=== PATIENT | male | born 1970 | race Caucasian/White ===

== ENCOUNTER 2017-09-29 11:13 | Observation (INO) | payer BC ==
[~2017-09-29] VITALS: Ht 185.4 cm; Wt 165.2 kg
--- NOTE | 2017-09-29 11:15 | NUR ---
PATIENT TO ROOM 10 VIA WHEELCHAIR. MD NOTIFIED OF PT STATUS.
--- NOTE | 2017-09-29 11:30 | NUR ---
IV INITATED, LABS COLLECTED. PATIENT MEDICATED WITH 10 UNITS OF REGULAR INSULIN AND BOLUS OF IV FLUIDS INITIATED. PATIENT AWARE OF PLAN OF CARE AND WAIT TIME. WILL CONITNUE TO MONITOR.
[2017-09-29 12:04] LABS: ALBUMIN 4.6 g/dL (3.2-5.0); ALKALINE PHOSPHATASE 112 u/l (38-126); ANION GAP 22 (6-22 (CALC)); BILIRUBIN, TOTAL 0.9 mg/dL (0.0-1.4); BUN 19 mg/dL (9-20); BUN/CREATININE RATIO 24 (12-20 (CALC)); CALCIUM 9.5 mg/dL (8.4-10.2); CARBON DIOXIDE 21 mmol/l (22-30); CHLORIDE 92 mmol/l (95-108); CREATININE 0.8 mg/dL (0.7-1.3); GFR > 60 ML/MIN (>=60 (CALC)); GFR FOR AFR.AMER. > 60 ML/MIN (>=60 (CALC)); POTASSIUM 4.4 mmol/l (3.5-5.1); SGOT/AST 36 u/l (17-59); SGPT/ALT 50 u/l (21-72); SODIUM 130 mmol/l (137-146); TOTAL PROTEIN 7.7 g/dL (6.3-8.2)
[2017-09-29 12:13] LABS: GLUCOSE 667 mg/dL (75-110)
[2017-09-29 12:16] LABS: HEMATOCRIT 42.7 % (39.0-50.0); HEMOGLOBIN 15.6 g/dl (14.0-18.0); IMMATURE GRANULOCYTES 0.6 % (0.0-1.0); MEAN CELL VOLUME 82.8 fL CALC (80.0-100.0); MEAN CORPUSCULAR HGB 30.2 pG CALC (26.0-32.0); MEAN CORPUSCULAR HGB CONC 36.5 g/L CALC (32.0-36.0); NEUT# 5.2 thou/uL (1.82-7.42); RED BLOOD COUNT 5.16 mill/uL (4.70-6.10); RED CELL DISTRI WIDTH 12.2 % (11.5-15.5)
[2017-09-29 12:18] LABS: MYOGLOBIN 157 ng/mL (0 - 121)
--- NOTE | 2017-09-29 12:30 | NUR ---
ACCUCHECK 497. PATIENT RESTING COMFORTABLY IN STRETCHER WITH HOB ELEVATED. PATIENT DENIES ANY NEEDS AT THIS TIME. DENIES ANY SOB, VSS. PATIENT AWARE OF PLAN FOR ADMISSION, WILL CONTINUE TO MONITOR.
--- NOTE | 2017-09-29 12:36 | NUR ---
SBAR PRINTED TO FLOOR
--- NOTE | 2017-09-29 13:05 | NUR ---
UNABLE TO GIVE REPORT, JOSE WILL CLL BACK.
--- NOTE | 2017-09-29 13:16 | NUR ---
REPORT CALLED TO MED SURG JOSE
--- NOTE | 2017-09-29 13:45 | NUR ---
PT TO MEDS[facility] VIA WC ACCOMPANIED BY STAFF.
--- NOTE | 2017-09-29 13:50 | NUR ---
Admission Note Report Given to: SBAR PRINTED TO FLOOR Transported by: X Wheelchair Stretcher Transported with: X Nurse Transporter X Patent IV O2 X Lobster Fisherman
[2017-09-29 14:00] VITALS: BP 141/91
--- NOTE | 2017-09-29 14:00 | NUR ---
PT ARRIVED FROM ER VIA WC ACCOMPANIED BY STAFF.IV SITE IS FREE FROM REDNESS OR EDMEA.
--- NOTE | 2017-09-29 14:15 | NUR ---
ASSESSMENT IS COMPLETED NO DISTRESS NOTED. IV SITE IS FREE FROM REDNESS OR EDMEA. TELE MONITOR IN PLACE.
[2017-09-29 15:16] VITALS: BP 160/65
--- NOTE | 2017-09-29 15:57 | NUR ---
pt received literature re: diabetes. pt also watched the video on tv re: diabetes
--- NOTE | 2017-09-29 16:30 | NUR ---
PT IS RELAXING AND VISITING WITH HIS MOTHER. SHE IS READING THE LITERATURE THAT WAS GIVEN TO PT DUE TO DIABETES. DR RICK HAS BEEN IN TO VISIT WITH PT.
[2017-09-29 19:35] VITALS: BP 132/74
--- NOTE | 2017-09-29 21:50 | NUR ---
PT APPEARS TO BE SLEEPING IN SUPINE POSITION;RESPIRATIONS EVEN AND UNLABORED ON RA;WOKE PT TO COMPLETE ASSESSMENT;#18G TO LAC INFUSING NS @ 80ML/HR WELL;PT VOICES NO COMPLAINTS OR CONCERNS AT THIS TIME;CURRENT BS 323 TO BE NOTIFED;SKIN INTACT;SAFETY PRECAUTIONS REINFORCED;CALL LIGHT IN REACH;WILL CONTINUE TO MONITOR
--- NOTE | 2017-09-29 22:20 | NUR ---
NOTIFIED OF HIGH BS, NO NEW ORDERS RECEIVED AT THIS TIME;WILL CONTINUE TO MONITOR
[2017-09-29 23:05] VITALS: BP 116/70
--- NOTE | 2017-09-29 23:05 | NUR ---
VS OBTAINED BY BRIGIDA ANAYA;INITIAL 02 SATS @ 84% WITH RESPIRATIONS OF 12; AFTER WAKING PT O2 SATS IMMEDIATELY INCREASED TO 95% WITH RESPIRATIONS OF 18 ON RA;HOB ELEVATED;PT VOICES NO COMPLAINS OF PAIN OR DISCOMFORTS;WILL CONTINUE TO MONITOR CLOSELY
[2017-09-30 04:29] VITALS: BP 150/92
--- NOTE | 2017-09-30 04:30 | NUR ---
PT APPEARS TO BE SLEEPING WITH EYES CLOSED;WOKE PT TO OBTAIN VS;IV FLUIDS INFUSING WELL TO LAC;RESPIRATIONS EVEN AND UNLABORED ON RA;TELE MONITOR IN PLACE;PT VOICES NO COMPLAINTS AT THIS TIME;CALL LIGHT IN REACH;WILL CONTINUE TO MONITOR
[2017-09-30 06:27] LABS: CHOLESTEROL HDL RATIO 7.1 (<4.4 (CALC)); HDL CHOLESTEROL 23 mg/dL (>=40); TOTAL CHOLESTEROL 163 mg/dl (0-199); TOTAL TRIGLYCERIDES 409 mg/dl (30-149); VLDL CHOLESTROL 82 mg/dl (5-56 (CALC))
[2017-09-30 06:38] LABS: ANION GAP 15 (6-22 (CALC)); BUN 14 mg/dL (9-20); BUN/CREATININE RATIO 18 (12-20 (CALC)); CALCIUM 8.6 mg/dL (8.4-10.2); CARBON DIOXIDE 25 mmol/l (22-30); CHLORIDE 101 mmol/l (95-108); CREATININE 0.8 mg/dL (0.7-1.3); GFR > 60 ML/MIN (>=60 (CALC)); GFR FOR AFR.AMER. > 60 ML/MIN (>=60 (CALC)); GLUCOSE 306 mg/dL (75-110); POTASSIUM 4.3 mmol/l (3.5-5.1); SODIUM 137 mmol/l (137-146)
--- NOTE | 2017-09-30 07:00 | NUR ---
REPORT RECIEVED FROM ZECHARIAH PRICE. PT ASLEEP ON ENTRY. NO SIGNS OF DISTRESS. RESP EVEN AND UNLABORED. TELE IN PLACE. SAFETY PRECAUTIONS IN PLACE. CALL LIGHT WITHIN REACH. WILL CONTINUE TO MONITOR.
[2017-09-30 08:30] VITALS: BP 129/79
[2017-09-30] MEDS ORDERED: LEVEMIR FL100 UNIT/M SC (12:06)
[2017-09-30] MEDS ORDERED: METFORMIN1000 MG PO (12:06)
[2017-09-30] MEDS ORDERED: ATORVASTATIN CA10 MG PO (12:06)
[2017-09-30] MEDS ORDERED: LISINOPRIL20 M1 PO (12:06)
[2017-09-30 12:15] VITALS: BP 131/72
[2017-09-30] MEDS ORDERED: LISINOPRIL10 M1 PO (13:01)
--- NOTE | 2017-09-30 15:39 | NUR ---
DIETARY IN ROOM WITH PT EDUCATING.
--- NOTE | 2017-09-30 16:22 | NUR ---
Visited pt room for discharge med rec. Reviewed all medications with pt including what they are for, how/when to take them and possible side effects. Discussed DASH diet with pt for HTN, as well as low carb (<60 per meal) and portion control (plate method) for DM. Instructed pt on how to check blood sugar using home monitor, to keep BG log, as well as what his blood sugar goals are (A1c < 7, 80-130 fasting BG and <180 2hr post-prandial BG). Pt last recorded BP was 129/79 which is at goal of <140/90. Reviewed sigs/symp of both hyper- and hypoglycemia, as well as what pt should do if feels blood suger is low (check sugar, drink juice or eat peanut butter with crackers, recheck sugar in 15 mins, then eat a meal. Also discussed increase in exercise (30-50 mins of moderate-intensity exercise 5x/week). Reviewed hyperlipidemia with pt as well as goals and diet modification for prevention of cardiac events. Recommended that pt do daily feet checks, as well as annual feet checks and eye exams by physicians. Pt reports having a follow-up appointment with physician next week so recommended that he take his BP log to doctor appointment.
--- NOTE | 2017-09-30 16:42 | NUR ---
Discharge instructions given. Patient verbalizes understanding of same. Discharged in stable condition via Ambulatory to Home with staff. All belongings sent with pt.
== END 2017-09-30 16:40 | disposition home or self-care (01) | DRG 638 ==
LOC: ED 11:13 → ED-I 12:29 → ED 13:00 → MS2 13:01
PROVIDERS: Emergency Medicine; Internal Medicine; ADMIT Internal Medicine; ATTEND Internal Medicine
DX: E11.65 Type 2 diabetes mellitus with hyperglycemia (principal); Z68.42 Body mass index [BMI] 45.0-49.9, adult; E66.01 Morbid (severe) obesity due to excess calories; F17.220 Nicotine dependence, chewing tobacco, uncomplicated; I10 Essential (primary) hypertension; E78.5 Hyperlipidemia, unspecified
CPT/HCPCS: G0378

== ENCOUNTER 2018-06-15 10:59 | Inpatient (IN) | payer BC ==
[~2018-06-15] VITALS: Ht 185.4 cm; Wt 152.4 kg
[2018-06-15] VITALS (10 sets, daily range): BP systolic 85–125; BP diastolic 46–84
[~2018-06-15 10:59] MED LIST: ATORVASTATIN CA10 MG PO; LEVEMIR FL100 UNIT/M SC; LISINOPRIL10 M1 PO; LISINOPRIL20 M1 PO; METFORMIN1000 MG PO
--- NOTE | 2018-06-15 11:06 | NUR ---
TO TX ROOM
--- NOTE | 2018-06-15 11:15 | NUR ---
IV INITITAED AND LABS COLLECTED. PT DENIES ANY PAIN OR SOB. PT TACHYPNEIC AT 32 BPM. LS CLEAR BILATERALY. PT HAS BEEN OUT OF METFORMIN FOR 7 DAYS. PT A&O Avi3, JUSTO. PT AWARE OF PLAN OF CARE AND WAIT TIME. CALL SQUIRES WITHIN REACH.
--- NOTE | 2018-06-15 11:16 | NUR ---
PT REPORTS UNSUR OF MEDICATIONS OTHER THAN METFORMIONG BUT TOOK THE 2 MEDS THIS AM THAT HE HAS AT HOME. STATES NOT ON INSULIN. WILL REQUEST PHARMACY CONSULT
[2018-06-15 11:49] LABS: HEMATOCRIT 45.5 % (39.0-50.0); HEMOGLOBIN 16.4 g/dl (14.0-18.0); IMMATURE GRANULOCYTES 0.5 % (0.0-5.0); MEAN CELL VOLUME 80.5 fL CALC (80.0-100.0); NEUT# 5.75 thou/uL (1.82-7.42); RED BLOOD COUNT 5.65 mill/uL (4.70-6.10); RED CELL DISTRI WIDTH 12.1 % (11.5-15.5)
[2018-06-15 11:57] LABS: ALBUMIN 4.2 g/dL (3.2-5.0); ALKALINE PHOSPHATASE 119 u/l (38-126); BILIRUBIN, TOTAL 0.5 mg/dL (0.0-1.4); BUN 16 mg/dL (9-20); BUN/CREATININE RATIO 19 (12-20 (CALC)); CARBON DIOXIDE 23 mmol/l (22-30); CREATININE 0.8 mg/dL (0.7-1.3); GFR > 60 ML/MIN (>=60 (CALC)); GFR FOR AFR.AMER. > 60 ML/MIN (>=60 (CALC)); LIPASE 289 u/l (23-300); POTASSIUM 4.6 mmol/l (3.5-5.1); SGOT/AST 21 u/l (17-59); SGPT/ALT 42 u/l (21-72); TOTAL PROTEIN 7.5 g/dL (6.3-8.2)
[2018-06-15 12:12] LABS: ANION GAP 23 (6-22 (CALC)); CHLORIDE 87 mmol/l (95-108); SODIUM 128 mmol/l (137-146)
--- NOTE | 2018-06-15 12:15 | NUR ---
IV FLUIDS INFUSING WITH NO DIFFICULTY. IV SITE FREE FROM REDNESS AND EDEMA. PT STANDING AT BEDSIDE TO USE URINAL. PT DENIES ANY DIZZINESS AT THIS TIME. CALL SQUIRES WITHIN REACH. WILL CONTINUE TO MONITOR.
--- NOTE | 2018-06-15 12:40 | NUR ---
1000 MLS OF PALE YELLOW URINE EMPTIED FROM URINAL.
--- NOTE | 2018-06-15 12:58 | NUR ---
CALL PLACED TO ICU, YOSHI WILL CALL BACK WHEN SHE IS READY FOR REPORT.
--- NOTE | 2018-06-15 13:00 | NUR ---
PT REQUESTING SOMETHING FOR THE CRAMPING IN HIS BILATERAL LEGS. MD NOTIFIED.
--- NOTE | 2018-06-15 13:00 | NUR ---
PT SNORING IN ROOM BUT AWAKENS TO VERBAL STIMULI. PT REPORTS PAIN IS 2/10 AT THIS TIME. INSULIN CONTINUES AT 5 UNITS PER HOUR. CALL SQUIRES WITHIN REACH.
--- NOTE | 2018-06-15 13:45 | NUR ---
REPORT CALLED TO WHITNEY BELLE.
--- NOTE | 2018-06-15 14:05 | NUR ---
Admission Note Report Given to: WHITNEY BELLE Transported by: Wheelchair X Stretcher Transported with: X Nurse Transporter X Patent IV O2 X Carton Liner PT TO ICU 6, CARE RELINQUISHED TO YOSHI OLSON.
--- NOTE | 2018-06-15 14:05 | NUR ---
PT ARRIVED TO ICU BED 7 VIA STRETCHER, BEDSIDE REPORT RECIEVED FROM WHITNEY STOREY. PT ALERT AND ABLE TO MAKE NEEDS KNOWN, PERRL, T-97.6, AP-100, RR-16, B/P- 108/60,SA02@100% ON RA. LS CLEAR THROUGHOUT, BSX4 ACTIVE, PT REPORT LAST BM 06-12-18. PT CONTINUES WITH 20G TO LW, INFUSING INSULIN DRIP @4 UNITS/HR AND LR @KVO. NO S/S OF INFILTRATION AT SITE. PT DENIES CHEST PAIN, SOB OR DISTRESS AT THIS TIME. SKIN CDI. PT AMBULTATES WITH SBA. CONTINENT OF B&B. PT REPORTS CRAMPING IN BLE. PT REPORTS HEIGHT 6'1 AND WEIGH ON BED 336LB. CALL LIGHT IN REACH WILL MONITOR.
--- NOTE | 2018-06-15 15:00 | NUR ---
LINDA WU, CALLED PHARMACY FOR STAT GLUCOSE, INCREASED INSULIN DRIP TO 5UNITS/HR PER PROTOCOL. PT HAS FAMILY AT BEDSIDE. OFFERS NO COMPLAINTS AT THIS TIME. CALL LIGHT IN REACH.
--- NOTE | 2018-06-15 15:55 | NUR ---
LAB GLUCOSE= 272. INSULIN DRIP RATE DROPPED TO 3 UNITS/HR
--- NOTE | 2018-06-15 16:55 | NUR ---
PT RESTING IN BED. PT OFFERS NO COMPLAINTS AT THIS TIME. IV CONTINUES INFUSING, NO S/S OF INFILTRATION OR INFECTION NOTES AT SITE.CALL LIGHT IN REACH, WILL MONITOR.
--- NOTE | 2018-06-15 18:00 | NUR ---
ACCUCHECK 219, INSULIN DRIP REMAINS THE SAME. WILL MONITOR.
[2018-06-15 18:40] LABS: POTASSIUM 3.7 mmol/l (3.5-5.1)
--- NOTE | 2018-06-15 20:00 | NUR ---
PT IN BED WITH EYES CLOSED, SNORING, O2 SAT DROPS TO 70'S DURING SLEEP. O2 @2L VIA NC, APPLIED. O2 SAT 96% WHILE AWAKE, LUNG SOUNDS CLEAR BILAT. LARGE SOFT ABODMEN. DENIES PAIN OR DISCOMFORT. INSULIN GTT DC'D PRIOR TO SHIFT CHANGE, NS INFUSING TO LEFT WRIST AT 150CC/HR. WILL CONTINUE TO MONITOR. CALL LIGHT IN REACH.
--- NOTE | 2018-06-15 21:10 | NUR ---
ACCUCHECK 308, COVERED WITH 4UNITS OF NOVULOG INSULIN SQ PER SS, TOLERATED WELL. NS INFUSING TO LW AT 150CC/HR WITH NO COMPLICATION. CALL LIGHT IN REACH.
--- NOTE | 2018-06-15 23:30 | NUR ---
RESTING IN BED WITH EYES CLOSED, RESPIRATIONS EVEN AND UNLABORED ON O2 @2L VIA NC. CALL LIGHT IN REACH.
[2018-06-16] VITALS (7 sets, daily range): BP systolic 115–154; BP diastolic 59–103
--- NOTE | 2018-06-16 01:40 | NUR ---
PT RESTING WITH EYES CLOSED, O2 SAT DROPS TO THE 60'S AND 70'S WHEN SLEEPING. O2 SAT UP TO 90'S WHEN AWAKE.
[2018-06-16 03:15] LABS: URINE BILIRUBIN - DIPSTICK NEGATIVE (NEGATIVE); URINE BLOOD DIPSTICK NEGATIVE (NEGATIVE); URINE COLOR YELLOW; URINE GLUCOSE - DIPSTICK >=1000 mg/dL (NEGATIVE); URINE KETONE TRACE mg/dL (NEGATIVE); URINE LEUK ESTERASE NEGATIVE (NEGATIVE); URINE NITRITE - DIPSTICK NEGATIVE (Negative); URINE PROTEIN - DIPSTICK NEGATIVE (NEG-TRACE); URINE SPECIFIC GRAVITY 1.015; URINE UROBILINOGEN - DIPSTICK 0.2 E.U./dL (0.2)
[2018-06-16 03:16] LABS: URINE CLARITY CLEAR
--- NOTE | 2018-06-16 04:25 | NUR ---
MORNING BLOOD WORK DRAWN BY INSTRUCTOR ADJUNCT PHARMACY TECHNICIAN, TOLERATED WELL.
[2018-06-16 04:44] LABS: HEMATOCRIT 42.1 % (39.0-50.0); HEMOGLOBIN 15.2 g/dl (14.0-18.0); MEAN CELL VOLUME 82.2 fL CALC (80.0-100.0); MEAN CORPUSCULAR HGB 29.7 pG CALC (26.0-32.0); MEAN CORPUSCULAR HGB CONC 36.1 g/L CALC (32.0-36.0); RED BLOOD COUNT 5.12 mill/uL (4.70-6.10); RED CELL DISTRI WIDTH 12.3 % (11.5-15.5)
[2018-06-16 04:53] LABS: ANION GAP 16 (6-22 (CALC)); BUN 17 mg/dL (9-20); BUN/CREATININE RATIO 19 (12-20 (CALC)); CARBON DIOXIDE 28 mmol/l (22-30); CHLORIDE 98 mmol/l (95-108); CREATININE 0.9 mg/dL (0.7-1.3); GFR > 60 ML/MIN (>=60 (CALC)); GFR FOR AFR.AMER. > 60 ML/MIN (>=60 (CALC)); POTASSIUM 4.2 mmol/l (3.5-5.1); SODIUM 137 mmol/l (137-146)
--- NOTE | 2018-06-16 06:45 | NUR ---
RECIEVED REPORT FROM ZECHARIAH JUNG. ASSUMED PT CARE.
--- NOTE | 2018-06-16 07:30 | NUR ---
PT RESTING IN BED, A&OX3, ABLE TO MAKE NEEDS KNOWN. ST ON TELEMETRY, HR- 100, T-97.8, B/P 137/81, SA02@98%RA. PT DENIES CHEST PAIN, SOB, OR DISTRESS AT THIS TIME. PT SA02 DROPPS WHEN PT SLEEPING, PT IS AWARE AND STATES HE HAS BEEN TESTED FOR SLEEP APNEA AND DOES HAVE IT , BUT" THE EQUIPMENT IS TO EXPENSIVE AND I AM A MOUTH BREATHER AND THOSE THINGS CHOKE ME, I AM NOT WEARING IT." PT EDUCATED ON THE RISKS INCLUDING ASSOCIATED WITH NON-COMPLIANCE. PT STATED HE KNOWS THE RISKS, BUT "I'M NOT WEARING ANYTHING." BSX4 ACTIVE. SKI CDI. CONTINENT OF B&b. CALL LIGHT IN REACH, WILL MONITOR.
--- NOTE | 2018-06-16 08:00 | NUR ---
DIETARY ON UNIT, BREAKFAST TRAY SET UP.
--- NOTE | 2018-06-16 08:51 | NUR ---
DR. RICK AT BEDSIDE FOR ASSESSMENT AND TO DISCUSS PLAN OF CARE.
--- NOTE | 2018-06-16 10:00 | NUR ---
PT RESTING IN BED WITH EYES CLOSED, PT OFFERS NO COMPLAINTS AT THIS TIME.CALL LIGHT IN REACH, WILL MONITOR.
--- NOTE | 2018-06-16 12:00 | NUR ---
PT RESTING IN BED, FAMILY AT THE BEDSIDE. PT OFFERS NO COMPLAINTS AT THIS TIME. CALL LIGHT IN REACH, WILL MONITOR.
[2018-06-16] MEDS ORDERED: JARDIANCE25 MG PO (13:27)
[2018-06-16] MEDS ORDERED: METFORMIN1000 MG PO (13:27)
--- NOTE | 2018-06-16 14:00 | NUR ---
IV site discontinued, cath intact. No edema , no redness, voices no discomfort.
--- NOTE | 2018-06-16 14:20 | NUR ---
Discharge instructions given. Patient verbalizes understanding of same. Discharged in stable condition via Wheelchair to Home with volunteer, 2 paper prescriptions sent with pt. All belongings sent with pt. pt declined florencio bedside service.
== END 2018-06-16 14:19 | disposition home or self-care (01) | DRG 638 ==
LOC: ED 10:59 → ED-I 12:14 → ED 12:26 → ICU 12:27
PROVIDERS: ADMIT Internal Medicine; ATTEND Internal Medicine
DX: E11.65 Type 2 diabetes mellitus with hyperglycemia (principal); Z68.41 Body mass index [BMI] 40.0-44.9, adult; I10 Essential (primary) hypertension; F17.220 Nicotine dependence, chewing tobacco, uncomplicated; E66.01 Morbid (severe) obesity due to excess calories; Z79.84 Long term (current) use of oral hypoglycemic drugs; Z91.14 Patient's other noncompliance with medication regimen